=== PATIENT | female | born 1990 | race Two or more races ===

== ENCOUNTER 2016-08-20 09:03 | Emergency (ER) | payer MEDICAID ==
[~2016-08-20] VITALS: Ht 162.6 cm; Wt 78.9 kg
[2016-08-20 09:56] LABS: Urine Bilirubin Negative (Negative); Urine Color Yellow (Yellow); Urine Glucose Normal (Normal); Urine Ketone Negative (Negative); Urine Mucus FEW (None Seen); Urine Nitrite Negative (Negative); Urine RBC 292 /hpf (0 - 4); Urine Squamous Epithelial Cell FEW /hpf (<5); Urine Urobilinogen Normal (Negative)
[2016-08-20 10:02] LABS: Urine Blood 3+ /uL (Negative)
[2016-08-20 11:54] VITALS: BP 127/76
== END 2016-08-20 13:23 | disposition home or self-care (01) ==
LOC: ER 09:03
DX: O23.41 Unspecified infection of urinary tract in pregnancy, first trimester (principal); Z3A.10 10 weeks gestation of pregnancy
CPT/HCPCS: 36415; 76801; 81001; 84702

== ENCOUNTER 2017-01-23 21:59 | Observation (INO) | payer MEDICAID ==
[~2017-01-23] VITALS: Ht 162.6 cm; Wt 94.3 kg
[2017-01-23] MEDS ORDERED: TERBUTALINE SULFATE 1 MG/ML 1ML VIAL SC ONE (23:04)
[2017-01-24] MEDS ORDERED: TERBUTALINE SULFATE 1 MG/ML 1ML VIAL SC ONE ×3 (00:32)
[2017-01-24 01:04] LABS: Urine RBC None Seen /hpf (0 - 4)
[2017-01-24 01:21] LABS: Urine Bilirubin Negative (Negative); Urine Blood Negative /uL (Negative); Urine Color Yellow (Yellow); Urine Glucose Normal (Normal); Urine Ketone 2+ (Negative); Urine Nitrite Negative (Negative); Urine Squamous Epithelial Cell FEW /hpf (<5); Urine Urobilinogen Normal (Negative)
[2017-01-24] MEDS ORDERED: PREN27TA7 OR (05:03)
== END 2017-01-24 01:30 | disposition home or self-care (01) | DRG 566 ==
LOC: LDRP 21:59
PROVIDERS: ADMIT Specialist; ATTEND Specialist
DX: O26.893 Other specified pregnancy related conditions, third trimester (principal); R10.9 Unspecified abdominal pain; Z3A.31 31 weeks gestation of pregnancy
CPT/HCPCS: 59025; 81001; 81002; 96372; G0378; J3105

== ENCOUNTER 2017-02-09 18:42 | Observation (INO) | payer MEDICAID ==
[~2017-02-09 18:42] MED LIST: PREN27TA7 OR
[2017-02-09 20:44] LABS: Basophils # (auto) 0 uL; Basophils % (auto) 0.3 % (0.0-2.0); Eosinophils # (auto) 0.1 uL; Eosinophils % (auto) 0.9 % (0.0-7.0); Hematocrit 32.2 % (36.0-46.0); Hemoglobin 11.3 g/dL (12.2-16.2); Lymphocytes # (auto) 1.7 uL; Lymphocytes % (auto) 19.5 % (10.0-50.0); Mean Corpuscular Hemoglobin 31.5 pg (28.0-32.0); Mean Corpuscular Hgb Conc. 35.2 g/dL (32.0-36.0); Mean Corpuscular Volume 89.4 fL (80.0-100.0); Monocytes # (auto) 0.7 uL; Monocytes % (auto) 7.8 % (0.0-12.0); Neutrophils # (auto) 6.1 uL; Neutrophils % (auto) 71.5 % (37.0-80.0); Platelet Count (auto) 115 10^3/uL (140-450); White Blood Cell 8.5 10^3/uL (4.4-10.8)
[2017-02-09 20:59] LABS: Albumin 2.6 g/dL (3.4-5.0); BUN/Creatinine Ratio 11.4; Calcium 8.9 mg/dL (8.5-10.1); Potassium 3.2 mmol/L (3.5-5.1)
[2017-02-09 21:05] LABS: INR 0.91 (0.9-1.15); Partial Thromboplastin Time 24.1 sec (22.64-33.71); Prothrombin Time 9.9 sec (9.37-12.3)
[2017-02-09 21:08] LABS: Uric Acid 3.1 mg/dL (2.6-6.0)
[2017-02-09 21:28] LABS: Bilirubin, Total 0.2 mg/dL (0.2-1.0); Total Protein 6.8 g/dL (6.4-8.2)
== END 2017-02-09 20:15 | disposition home or self-care (01) | DRG 566 ==
LOC: LDRP 18:42
PROVIDERS: ADMIT Specialist; ATTEND Specialist
DX: O13.3 Gestational [pregnancy-induced] hypertension without significant proteinuria, third trimester (principal); Z3A.34 34 weeks gestation of pregnancy
CPT/HCPCS: 36415; 59025; 80053; 81002; 84550; 85025; 85362; 85379; 85610; 85730; G0378

== ENCOUNTER 2017-02-10 18:27 | Observation (INO) | payer MEDICAID | END 2017-02-10 20:07 | disposition home or self-care (01) | DRG 566 | LOC: LDRP 18:27 | PROVIDERS: ADMIT Specialist; ATTEND Specialist | DX: O13.3 Gestational [pregnancy-induced] hypertension without significant proteinuria, third trimester (principal); Z3A.34 34 weeks gestation of pregnancy | CPT/HCPCS: 59025; 81002; 84156; G0378 ==

== ENCOUNTER 2017-02-14 12:03 | Observation (INO) | payer MEDICAID ==
[~2017-02-14] VITALS: Ht 1 cm; Wt 0.5 kg
[2017-02-14] MEDS ORDERED: ACETAMINOPHEN 325 MG TAB PO ONE (12:15)
[2017-02-14 12:48] LABS: Basophils # (auto) 0 uL; Basophils % (auto) 0.3 % (0.0-2.0); Eosinophils # (auto) 0.1 uL; Eosinophils % (auto) 0.9 % (0.0-7.0); Hematocrit 33.1 % (36.0-46.0); Hemoglobin 11.4 g/dL (12.2-16.2); Lymphocytes # (auto) 1.3 uL; Lymphocytes % (auto) 16.3 % (10.0-50.0); Mean Corpuscular Hemoglobin 30.7 pg (28.0-32.0); Mean Corpuscular Hgb Conc. 34.5 g/dL (32.0-36.0); Mean Corpuscular Volume 88.9 fL (80.0-100.0); Monocytes # (auto) 0.4 uL; Monocytes % (auto) 4.8 % (0.0-12.0); Neutrophils # (auto) 6.1 uL; Neutrophils % (auto) 77.7 % (37.0-80.0); Platelet Count (auto) 106 10^3/uL (140-450); Red Blood Cells 3.72 10^6/uL (4.0-5.20); Red Cell Distribution Width 14.2 % (11.8-14.3); White Blood Cell 7.9 10^3/uL (4.4-10.8)
[2017-02-14 13:05] LABS: INR 0.92 (0.9-1.15)
[2017-02-14 13:39] LABS: Albumin 2.8 g/dL (3.4-5.0); BUN/Creatinine Ratio 9.5; Bilirubin, Total 0.3 mg/dL (0.2-1.0); Calcium 8.5 mg/dL (8.5-10.1); Total Protein 6.9 g/dL (6.4-8.2); Uric Acid 3.8 mg/dL (2.6-6.0)
[2017-02-14 13:58] LABS: Urine Bacteria NONE SEEN /hpf (None Seen); Urine Blood Negative /uL (Negative); Urine Specific Gravity 1.011 (1.001-1.035); Urine WBC 1 /hpf (0 - 5)
== END 2017-02-14 14:00 | disposition home or self-care (01) | DRG 566 ==
LOC: LDRP 12:03
PROVIDERS: ADMIT Specialist; ATTEND Specialist
DX: O13.3 Gestational [pregnancy-induced] hypertension without significant proteinuria, third trimester (principal); Z87.891 Personal history of nicotine dependence; Z3A.35 35 weeks gestation of pregnancy
CPT/HCPCS: 36415; 59025; 76818; 80053; 81001; 81002; 84550; 85025; 85610; 85730; G0378

== ENCOUNTER 2017-02-16 15:00 | Observation (INO) | payer MEDICAID | END 2017-02-16 16:15 | disposition home or self-care (01) | DRG 566 | LOC: LDRP 15:00 | PROVIDERS: ADMIT Obstetrics & Gynecology; ATTEND Obstetrics & Gynecology | DX: O13.3 Gestational [pregnancy-induced] hypertension without significant proteinuria, third trimester (principal); Z3A.35 35 weeks gestation of pregnancy | CPT/HCPCS: 59025; 76818; 81002; G0378 ==

== ENCOUNTER 2017-02-20 09:00 | Observation (INO) | payer MEDICAID ==
[2017-02-20 10:00] LABS: Basophils # (auto) 0 uL; Basophils % (auto) 0.4 % (0.0-2.0); Eosinophils # (auto) 0.1 uL; Eosinophils % (auto) 1.2 % (0.0-7.0); Hemoglobin 10.8 g/dL (12.2-16.2); Lymphocytes # (auto) 1.3 uL; Mean Corpuscular Hemoglobin 30.5 pg (28.0-32.0); Mean Corpuscular Hgb Conc. 33.9 g/dL (32.0-36.0); Monocytes # (auto) 0.4 uL; Monocytes % (auto) 5.2 % (0.0-12.0); Neutrophils # (auto) 5.8 uL; Neutrophils % (auto) 76.2 % (37.0-80.0); Nucleated Red Blood Cells % 0.1 %; Platelet Count (auto) 108 10^3/uL (140-450); Red Blood Cells 3.56 10^6/uL (4.0-5.20); Red Cell Distribution Width 14.1 % (11.8-14.3); White Blood Cell 7.7 10^3/uL (4.4-10.8)
[2017-02-20 10:09] LABS: INR 0.95 (0.9-1.15); Partial Thromboplastin Time 24.8 sec (22.64-33.71); Prothrombin Time 10.4 sec (9.37-12.3)
[2017-02-20 10:10] LABS: Urine Bacteria FEW /hpf (None Seen); Urine Blood Negative /uL (Negative); Urine Specific Gravity 1.015 (1.001-1.035); Urine WBC 7 /hpf (0 - 5)
[2017-02-20 10:24] LABS: Albumin 2.5 g/dL (3.4-5.0); BUN/Creatinine Ratio 14.3; Bilirubin, Total 0.3 mg/dL (0.2-1.0); Calcium 7.9 mg/dL (8.5-10.1); Potassium 3.1 mmol/L (3.5-5.1); Total Protein 6.3 g/dL (6.4-8.2)
[2017-02-20] MEDS ORDERED: POTASSIUM CHL 20 Meq TABLET PO ONE (10:48)
[2017-02-20 11:53] LABS: Protein, Urine 16.7 mg/dL (0.0-11.9)
[2017-02-20 12:29] LABS: 24 Hr. Total Protein, Urine 283.9 mg/24 Hr (<149.1)
== END 2017-02-20 13:25 | disposition home or self-care (01) | DRG 566 ==
LOC: LDRP 09:00
PROVIDERS: ADMIT Specialist; ATTEND Specialist
DX: O13.3 Gestational [pregnancy-induced] hypertension without significant proteinuria, third trimester (principal); O26.893 Other specified pregnancy related conditions, third trimester; E87.6 Hypokalemia; O62.9 Abnormality of forces of labor, unspecified; Z3A.35 35 weeks gestation of pregnancy
CPT/HCPCS: 36415; 59025; 76818; 80053; 81001; 81002; 84156; 84550; 85025; 85610; 85730; G0378

== ENCOUNTER 2017-02-23 10:52 | Observation (INO) | payer MEDICAID ==
[~2017-02-23] VITALS: Ht 162.6 cm; Wt 97.1 kg
[2017-02-23 13:08] LABS: Basophils # (auto) 0 uL; Basophils % (auto) 0.2 % (0.0-2.0); Eosinophils # (auto) 0.1 uL; Eosinophils % (auto) 1.1 % (0.0-7.0); Hematocrit 31.3 % (36.0-46.0); Hemoglobin 10.7 g/dL (12.2-16.2); Lymphocytes # (auto) 1.1 uL; Mean Corpuscular Hemoglobin 30.9 pg (28.0-32.0); Mean Corpuscular Hgb Conc. 34.2 g/dL (32.0-36.0); Mean Corpuscular Volume 90.3 fL (80.0-100.0); Monocytes # (auto) 0.4 uL; Monocytes % (auto) 6.5 % (0.0-12.0); Neutrophils # (auto) 5.1 uL; Neutrophils % (auto) 75.2 % (37.0-80.0); Platelet Count (auto) 114 10^3/uL (140-450); Red Blood Cells 3.46 10^6/uL (4.0-5.20); Red Cell Distribution Width 13.9 % (11.8-14.3); White Blood Cell 6.8 10^3/uL (4.4-10.8)
[2017-02-23 13:14] LABS: BUN/Creatinine Ratio 11.1; Potassium 3.1 mmol/L (3.5-5.1)
[2017-02-23 13:15] LABS: Albumin 2.6 g/dL (3.4-5.0); Bilirubin, Total 0.2 mg/dL (0.2-1.0); Calcium 8.1 mg/dL (8.5-10.1); Total Protein 6.6 g/dL (6.4-8.2); Uric Acid 3.5 mg/dL (2.6-6.0)
[2017-02-23 13:16] LABS: INR 0.91 (0.9-1.15); Partial Thromboplastin Time 24.8 sec (22.64-33.71); Prothrombin Time 9.9 sec (9.37-12.3)
[2017-02-23 13:20] LABS: Urine Bacteria NONE SEEN /hpf (None Seen); Urine Blood Negative /uL (Negative); Urine Mucus FEW (None Seen); Urine Specific Gravity 1.011 (1.001-1.035); Urine WBC 7 /hpf (0 - 5)
[2017-02-23] MEDS ORDERED: POTASSIUM CHL 20 Meq TABLET PO ONE (13:30)
[2017-02-23] MEDS ORDERED: POTASSIUM CHLORIDE 40 MEQ, LIDOCAINE 1% (LOCAL ANESTH.) 4 ML in SODIUM CHL 0.9% 100 ML IV ONE (13:30)
== END 2017-02-23 17:55 | disposition home or self-care (01) | DRG 566 ==
LOC: LDRP 10:52
PROVIDERS: ADMIT Specialist; ATTEND Specialist
DX: O13.3 Gestational [pregnancy-induced] hypertension without significant proteinuria, third trimester (principal); O26.93 Pregnancy related conditions, unspecified, third trimester; E87.6 Hypokalemia; Z3A.36 36 weeks gestation of pregnancy
CPT/HCPCS: 36415; 59025; 76818; 80053; 81001; 81002; 84550; 85025; 85362; 85379; 85610; 85730; 96365; 96366; G0378; J2001; J3480

== ENCOUNTER 2017-02-27 08:32 | Observation (INO) | payer MEDICAID ==
[~2017-02-27] VITALS: Ht 162.6 cm; Wt 97.1 kg
[2017-02-27 09:34] LABS: Albumin 2.7 g/dL (3.4-5.0); BUN/Creatinine Ratio 9.6; Calcium 8.7 mg/dL (8.5-10.1); Potassium 3.7 mmol/L (3.5-5.1)
[2017-02-27 09:37] LABS: Bilirubin, Total 0.2 mg/dL (0.2-1.0); Total Protein 6.9 g/dL (6.4-8.2)
[2017-02-27] MEDS ORDERED: LABETALOL HCL 200 MG TAB PO ONE (10:00)
[2017-02-27 10:25] LABS: Basophils # (auto) 0 uL; Basophils % (auto) 0.2 % (0.0-2.0); Eosinophils # (auto) 0.1 uL; Hematocrit 33.1 % (36.0-46.0); Hemoglobin 11.3 g/dL (12.2-16.2); Lymphocytes # (auto) 1.2 uL; Mean Corpuscular Hemoglobin 30.9 pg (28.0-32.0); Mean Corpuscular Hgb Conc. 34.2 g/dL (32.0-36.0); Mean Corpuscular Volume 90.4 fL (80.0-100.0); Monocytes # (auto) 0.5 uL; Monocytes % (auto) 6.1 % (0.0-12.0); Neutrophils # (auto) 6.6 uL; Neutrophils % (auto) 78.7 % (37.0-80.0); Platelet Count (auto) 104 10^3/uL (140-450); Red Blood Cells 3.66 10^6/uL (4.0-5.20); Red Cell Distribution Width 14.2 % (11.8-14.3); White Blood Cell 8.4 10^3/uL (4.4-10.8)
[2017-02-27 10:28] LABS: Urine Blood Negative /uL (Negative); Urine Specific Gravity 1.006 (1.001-1.035); Urine WBC 1 /hpf (0 - 5)
[2017-02-27 10:29] LABS: Urine Bacteria NONE SEEN /hpf (None Seen)
[2017-02-27 10:48] LABS: INR 0.92 (0.9-1.15); Partial Thromboplastin Time 24.5 sec (22.64-33.71)
== END 2017-02-27 11:40 | disposition home or self-care (01) | DRG 566 ==
LOC: LDRP 08:32
PROVIDERS: ADMIT Obstetrics & Gynecology; ATTEND Obstetrics & Gynecology
DX: O13.3 Gestational [pregnancy-induced] hypertension without significant proteinuria, third trimester (principal); O26.893 Other specified pregnancy related conditions, third trimester; R10.2 Pelvic and perineal pain; R51 Headache; Z3A.36 36 weeks gestation of pregnancy
CPT/HCPCS: 36415; 59025; 76818; 80053; 81001; 81002; 84550; 85025; 85610; 85730; G0378

== ENCOUNTER 2017-02-28 20:40 | Observation (INO) | payer MEDICAID ==
[2017-03-01] MEDS ORDERED: LABE200T18 PO (10:42)
== END 2017-02-28 21:46 | disposition home or self-care (01) | DRG 560 ==
LOC: LDRP 20:40
PROVIDERS: ADMIT Obstetrics & Gynecology; ATTEND Obstetrics & Gynecology
DX: O13.4 Gestational [pregnancy-induced] hypertension without significant proteinuria, complicating childbirth (principal); Z3A.37 37 weeks gestation of pregnancy
CPT/HCPCS: 59025; G0378

== ENCOUNTER 2017-03-01 10:05 | Observation (INO) | payer MEDICAID ==
[2017-03-01] MEDS ORDERED: LABE200T18 PO (10:42)
[2017-03-01 10:51] LABS: Protein, Urine 15.1 mg/dL (0.0-11.9)
[2017-03-01 10:56] LABS: 24 Hr. Total Protein, Urine 286.9 mg/24 Hr (<149.1)
[2017-03-01 11:05] LABS: Urine Bacteria FEW /hpf (None Seen); Urine Blood Negative /uL (Negative); Urine Specific Gravity 1.009 (1.001-1.035); Urine WBC 6 /hpf (0 - 5)
== END 2017-03-01 12:00 | disposition home or self-care (01) | DRG 955 ==
LOC: LDRP 10:05
PROVIDERS: ADMIT Specialist; ATTEND Specialist
DX: O13.9 Gestational [pregnancy-induced] hypertension without significant proteinuria, unspecified trimester (principal); Z3A.37 37 weeks gestation of pregnancy
CPT/HCPCS: 59025; 76818; 81001; 81002; 84156; G0378

== ENCOUNTER 2017-03-05 09:55 | Observation (INO) | payer MEDICAID ==
[~2017-03-05 09:55] MED LIST changes: +LABE200T18 PO
[2017-03-05 12:04] LABS: Basophils # (auto) 0 uL; Basophils % (auto) 0.3 % (0.0-2.0); Eosinophils # (auto) 0.1 uL; Lymphocytes # (auto) 1.1 uL; Lymphocytes % (auto) 15.1 % (10.0-50.0); Mean Corpuscular Hemoglobin 30.8 pg (28.0-32.0); Mean Corpuscular Hgb Conc. 34.2 g/dL (32.0-36.0); Mean Corpuscular Volume 89.9 fL (80.0-100.0); Monocytes # (auto) 0.5 uL; Monocytes % (auto) 6.4 % (0.0-12.0); Neutrophils # (auto) 5.8 uL; Neutrophils % (auto) 77.2 % (37.0-80.0); Platelet Count (auto) 105 10^3/uL (140-450); Red Blood Cells 3.56 10^6/uL (4.0-5.20); Red Cell Distribution Width 14.2 % (11.8-14.3); White Blood Cell 7.5 10^3/uL (4.4-10.8)
[2017-03-05 12:31] LABS: Albumin 2.6 g/dL (3.4-5.0); BUN/Creatinine Ratio 8.3; Bilirubin, Total 0.3 mg/dL (0.2-1.0); Calcium 8.4 mg/dL (8.5-10.1); Potassium 3.6 mmol/L (3.5-5.1); Total Protein 6.7 g/dL (6.4-8.2); Uric Acid 3.8 mg/dL (2.6-6.0)
[2017-03-05 12:32] LABS: INR 0.93 (0.9-1.15); Partial Thromboplastin Time 26.5 sec (22.64-33.71); Prothrombin Time 10.1 sec (9.37-12.3)
[2017-03-05 12:36] LABS: Urine Specific Gravity 1.006 (1.001-1.035)
[2017-03-05 12:37] LABS: Urine Blood Normal /uL (Negative)
[2017-03-05 12:40] LABS: Urine Bacteria FEW /hpf (None Seen); Urine WBC 0-2 /hpf (0 - 5)
== END 2017-03-05 12:05 | disposition home or self-care (01) | DRG 566 ==
LOC: LDRP 09:55
PROVIDERS: ADMIT Specialist; ATTEND Specialist
DX: O13.3 Gestational [pregnancy-induced] hypertension without significant proteinuria, third trimester (principal); E03.9 Hypothyroidism, unspecified; O99.283 Endocrine, nutritional and metabolic diseases complicating pregnancy, third trimester; Z3A.37 37 weeks gestation of pregnancy
CPT/HCPCS: 36415; 59025; 76818; 80053; 81001; 81002; 84550; 85025; 85610; 85730; G0378

== ENCOUNTER 2017-03-07 03:18 | Inpatient (IN) | payer MEDICAID ==
[~2017-03-07] VITALS: Ht 162.6 cm; Wt 99.3 kg
[2017-03-07] MEDS ORDERED: LACT. RINGERS/OXYTOCIN 20UNITS 1,000 ML IV SCH ×3 (04:35→21:13)
[2017-03-07 04:40] LABS: Basophils # (auto) 0 uL; Basophils % (auto) 0.2 % (0.0-2.0); Eosinophils # (auto) 0.1 uL; Eosinophils % (auto) 0.9 % (0.0-7.0); Hematocrit 32.9 % (36.0-46.0); Hemoglobin 11.1 g/dL (12.2-16.2); Lymphocytes # (auto) 1.5 uL; Mean Corpuscular Hemoglobin 30.7 pg (28.0-32.0); Mean Corpuscular Hgb Conc. 33.8 g/dL (32.0-36.0); Mean Corpuscular Volume 90.9 fL (80.0-100.0); Monocytes # (auto) 0.6 uL; Monocytes % (auto) 6.7 % (0.0-12.0); Neutrophils # (auto) 7.1 uL; Neutrophils % (auto) 76.2 % (37.0-80.0); Nucleated Red Blood Cells % 0.1 %; Platelet Count (auto) 111 10^3/uL (140-450); Red Blood Cells 3.63 10^6/uL (4.0-5.20); Red Cell Distribution Width 14.2 % (11.8-14.3); White Blood Cell 9.4 10^3/uL (4.4-10.8)
[2017-03-07] MEDS ORDERED: METHYLERGONOVINE MALEATE 0.2 MG/ML AMP IM PRN (04:45)
[2017-03-07] MEDS ORDERED: PENICILLIN G POT 5MIL/D5 50ML 50 ML IV ONE (04:45)
[2017-03-07] MEDS ORDERED: NALBUPHINE HCL 10 MG/1ml INJECTION IV PRN (04:45)
[2017-03-07] MEDS ORDERED: DERMOPLAST 60ML BOTTLE TOP PRN (04:45)
[2017-03-07] MEDS ORDERED: LIDOCAINE 2%HCL (LOCAL ANESTH.) INJ 20ML MDV IJ ONE (04:45)
[2017-03-07] MEDS ORDERED: WITCH HAZEL-GLYCERIN PAD TOP PRN (04:45)
[2017-03-07] MEDS ORDERED: PHISODERM TOP SOLN 240ML BTL TOP PRN (04:45)
[2017-03-07 04:54] LABS: INR 0.9 (0.9-1.15); Partial Thromboplastin Time 24.6 sec (22.64-33.71); Prothrombin Time 9.8 sec (9.37-12.3)
[2017-03-07 05:02] LABS: Alcohol, Urine < 3.0 mg/dL (0-5); Amphetamine Screen, Urine NEGATIVE (NEGATIVE); Barbiturate Scree,Urine NEGATIVE (NEGATIVE); Benzodiazephine Screen, Urine NEGATIVE (NEGATIVE); Cannabinoid Screen, Urine NEGATIVE (NEGATIVE); Cocaine Screen, Urine NEGATIVE (NEGATIVE); Opiate Scree,Urine NEGATIVE (NEGATIVE); Phencyclidine Screen, Urine NEGATIVE (NEGATIVE)
[2017-03-07 05:03] LABS: Urine Bacteria FEW /hpf (None Seen); Urine Blood Negative /uL (Negative); Urine WBC 1 /hpf (0 - 5)
[2017-03-07 05:06] LABS: Albumin 2.7 g/dL (3.4-5.0); BUN/Creatinine Ratio 11.8; Bilirubin, Total 0.3 mg/dL (0.2-1.0); Calcium 8.7 mg/dL (8.5-10.1); Potassium 3.6 mmol/L (3.5-5.1); Total Protein 6.8 g/dL (6.4-8.2); Uric Acid 3.5 mg/dL (2.6-6.0)
[2017-03-07] MEDS: LACTATED RINGER'S 1,000 ML IV SCH ×4 (05:30→12:23)
[2017-03-07] MEDS ORDERED: PENICILLIN G POTASSIUM 2,500,000 UNITS in D5W 5% 50 ML IV SCH (08:45)
[2017-03-07] MEDS: PENICILLIN G POTASSIUM 2,500,000 UNITS in D5W 5% 50 ML IV SCH ×4 (09:45→21:30)
[2017-03-07] MEDS ORDERED: LIDOCAINE HCL 2 %PF INJ 10ML AMP IJ ONE (10:30)
[2017-03-07] MEDS ORDERED: fentaNYL CITRATE 100 MCG/2 ML VL IV ONE (10:30)
[2017-03-07] MEDS ORDERED: fentaNYL W ROPIVACAINE 150 ML EPI SCH (10:30)
[2017-03-07] MEDS ORDERED: ePHEDrine SULFATE 50 MG/ML AMP IV ONE (10:30)
[2017-03-07] MEDS ORDERED: NALOXONE HCL 0.4 MG/ML VIAL IV ONE (10:30)
[2017-03-07] MEDS ORDERED: TERBUTALINE SULFATE 1 MG/ML 1ML VIAL SC ONE (12:30)
[2017-03-07] MEDS ORDERED: LABETALOL HCL 200 MG TAB PO ONE (16:45)
[2017-03-07] MEDS ORDERED: MAGNESIUM SULFATE 100 ML IV SCH (17:15)
[2017-03-07] MEDS: MAGNESIUM SULFATE 40MG/ML 1,000 ML IV SCH (18:09)
[2017-03-07] MEDS ORDERED: ACETAMINOPHEN 325 MG TAB PO PRN (20:15)
[2017-03-08] VITALS (21 sets, daily range): BP systolic 118–140; BP diastolic 57–86
[2017-03-08] MEDS: IBUPROFEN 600 MG TAB PO PRN ×3 (03:44→23:25)
[2017-03-08] MEDS: MAGNESIUM SULFATE 40MG/ML 1,000 ML IV SCH (12:31)
[2017-03-08] MEDS ORDERED: LACTATED RINGER'S 1,000 ML IV SCH (12:45)
[2017-03-08] MEDS ORDERED: SODIUM CHLORIDE 0.9% 1,000 ML IV SCH (12:45)
[2017-03-09 03:30] VITALS: BP 136/72
[2017-03-09 08:00] VITALS: BP 135/82
[2017-03-09] MEDS: IBUPROFEN 600 MG TAB PO PRN (09:53)
[2017-03-09] MEDS ORDERED: TETANUS-DIPTH-ACEL PERTUSSIS 0.5ML SYRG IM ONE (11:30)
[2017-03-09] MEDS ORDERED: INFLUENZA QUAD 2017-2018 0.5 ML SYRG IM ONE (11:30)
[2017-03-09] MEDS ORDERED: MEASLES, MUMPS & RUBELLA VAC(MMRII) 0.5ML SC ONE (11:30)
[2017-03-09 12:00] VITALS: BP 140/74
== END 2017-03-09 12:45 | disposition home or self-care (01) | DRG 560 ==
LOC: LDRP 03:18 → OBSVTOIN 03:18 → LDRP 03:26
PROVIDERS: ADMIT Obstetrics & Gynecology; ATTEND Obstetrics & Gynecology
PROC: 0KQM0ZZ Repair Perineum Muscle, Open Approach (ICD-10-PCS; principal; 2017-03-07)
PROC: 10E0XZZ Delivery of Products of Conception, External Approach (ICD-10-PCS; 2017-03-07)
PROC: 00HU33Z Insertion of Infusion Device into Spinal Canal, Percutaneous Approach (ICD-10-PCS; 2017-03-07)
PROC: 3E0R3BZ Introduction of Anesthetic Agent into Spinal Canal, Percutaneous Approach (ICD-10-PCS; 2017-03-07)
PROC: 10907ZC Drainage of Amniotic Fluid, Therapeutic from Products of Conception, Via Natural or Artificial Opening (ICD-10-PCS; 2017-03-07)
DX: O13.4 Gestational [pregnancy-induced] hypertension without significant proteinuria, complicating childbirth (principal); O99.824 Streptococcus B carrier state complicating childbirth; O77.0 Labor and delivery complicated by meconium in amniotic fluid; Z37.0 Single live birth; O69.81X0 Labor and delivery complicated by cord around neck, without compression, not applicable or unspecified; Z3A.38 38 weeks gestation of pregnancy; O70.1 Second degree perineal laceration during delivery; Z23 Encounter for immunization
CPT/HCPCS: 36415; 51702; 59025; 59409; 62282; 80053; 80307; 81001; 81002; 83735; 84550; 85025; 85610; 85730; 86850; 86900; 86901; 90471; 90715; 94760; 96365; 96366; 96372; 96375; G0378; J2540; J2590; J3010; J7060

== ENCOUNTER 2018-05-24 21:41 | Emergency (ER) | payer MEDICAID ==
[~2018-05-24] VITALS: Ht 162.6 cm; Wt 84.8 kg
[2018-05-24] MEDS ORDERED: methylPREDNISolone SOD SUCC 125 MG/2 ML VL IM ONE (22:15)
[2018-05-24] MEDS ORDERED: diphenhdrAMINE HCL 50 MG/1 ML VL IM ONE (22:15)
[2018-05-24 22:32] VITALS: BP 150/95
== END 2018-05-24 23:15 | disposition home or self-care (01) ==
LOC: ER 21:41
DX: T78.40XA Allergy, unspecified, initial encounter (principal); Z79.899 Other long term (current) drug therapy; X58.XXXA Exposure to other specified factors, initial encounter
CPT/HCPCS: 96372; 99283; J1200; J2930

== ENCOUNTER 2019-12-06 09:11 | Emergency (ER) | payer MEDICAID ==
[~2019-12-06] VITALS: Ht 162.6 cm; Wt 80.7 kg
[2019-12-06] MEDS ORDERED: FAMOTIDINE 20 MG TAB PO ONE (12:00)
[2019-12-06] MEDS ORDERED: SODIUM CHLORIDE 0.9% 1,000 ML IV ONE (12:00)
[2019-12-06] MEDS ORDERED: CHOLECALCIFEROL (VITD3) 2,000 UNIT CAP PO ONE (12:00)
[2019-12-06] MEDS ORDERED: SODIUM CHLORIDE 0.9% 500 ML IV ONE (12:00)
[2019-12-06] MEDS ORDERED: ASCORBIC ACID 500 MG TAB PO ONE (12:00)
[2019-12-06] MEDS ORDERED: AZITHROMYCIN 500MG/ 250ML 250 ML IV ONE (12:00)
[2019-12-06 13:25] LABS: Basophils # (auto) 0 10 ^3/uL (0-0.2); Basophils % (auto) 0.4 % (0.0-2.0); Eosinophils # (auto) 0 10 ^3/uL (0-0.8); Eosinophils % (auto) 0.3 % (0.0-7.0); Hematocrit 37.5 % (36.0-46.0); Hemoglobin 12.4 g/dL (12.2-16.2); Lymphocytes # (auto) 0.9 10 ^3/uL (0.4-5.4); Lymphocytes % (auto) 19.7 % (10.0-50.0); Mean Corpuscular Hemoglobin 29.3 pg (28.0-32.0); Mean Corpuscular Volume 88.6 fL (80.0-100.0); Monocytes # (auto) 0.5 10 ^3/uL (0-1.3); Monocytes % (auto) 10.3 % (0.0-12.0); Neutrophils # (auto) 3.2 10 ^3/uL (1.6-8.6); Neutrophils % (auto) 69.3 % (37.0-80.0); Platelet Count (auto) 132 10^3/uL (140-450); Red Blood Cells 4.23 10^6/uL (4.0-5.20); Red Cell Distribution Width 13.5 % (11.8-14.3); White Blood Cell 4.6 10^3/uL (4.4-10.8)
[2019-12-06 13:43] LABS: Albumin 3.6 g/dL (3.4-5.0); Calcium 8.2 mg/dL (8.5-10.1); Magnesium 2.2 mg/dL (1.6-2.6); Potassium 3.6 mmol/L (3.5-5.1)
[2019-12-06 13:46] LABS: Bilirubin, Total 0.2 mg/dL (0.2-1.0); Total Protein 7.5 g/dL (6.4-8.2)
[2019-12-06 16:00] VITALS: BP 110/63
== END 2019-12-06 17:28 | disposition home or self-care (01) ==
LOC: ER 09:11
DX: O98.511 Other viral diseases complicating pregnancy, first trimester (principal); O99.511 Diseases of the respiratory system complicating pregnancy, first trimester; U07.1 COVID-19; J98.8 Other specified respiratory disorders; Z3A.01 Less than 8 weeks gestation of pregnancy
CPT/HCPCS: 36415; 71045; 80053; 83735; 84702; 85025; 87070; 87426; 87804; 87880; 96361; 96365; 96366; 99284; J0456; J7030

== ENCOUNTER 2021-10-25 22:14 | Emergency (ER) | payer MEDICAID ==
[~2021-10-25] VITALS: Ht 162.6 cm; Wt 81.8 kg
[~2021-10-25 22:14] MED LIST changes: -LABE200T18 PO; +LABE200T7 PO
[2021-10-25 22:30] VITALS: BP 124/55
[2021-10-25 23:43] LABS: Basophils # (auto) 0 10 ^3/uL (0-0.2); Eosinophils # (auto) 0 10 ^3/uL (0-0.8); Hemoglobin 12.5 g/dL (12.2-16.2); Monocytes # (auto) 0.5 10 ^3/uL (0-1.3); Neutrophils # (auto) 7.1 10 ^3/uL (1.6-8.6); Red Cell Distribution Width 16.2 % (11.8-14.3); White Blood Cell 8.2 10^3/uL (4.4-10.8)
[2021-10-25 23:46] LABS: Albumin 4.2 g/dL (3.4-5.0); Calcium 9.2 mg/dL (8.5-10.1); Potassium 3.8 mmol/L (3.5-5.1)
[2021-10-25 23:50] LABS: BUN/Creatinine Ratio 9.5; Basophils % (auto) 0.2 % (0.0-2.0); Bilirubin, Total 0.4 mg/dL (0.2-1.0); Eosinophils % (auto) 0.3 % (0.0-7.0); Hematocrit 38.7 % (36.0-46.0); Lymphocytes # (auto) 0.5 10 ^3/uL (0.4-5.4); Lymphocytes % (auto) 6.7 % (10.0-50.0); Mean Corpuscular Hemoglobin 25.9 pg (28.0-32.0); Mean Corpuscular Hgb Conc. 32.3 g/dL (32.0-36.0); Mean Corpuscular Volume 80.1 fL (80.0-100.0); Monocytes % (auto) 5.9 % (0.0-12.0); Neutrophils % (auto) 86.9 % (37.0-80.0); Red Blood Cells 4.83 10^6/uL (4.0-5.20); Total Protein 8.3 g/dL (6.4-8.2)
[2021-10-25 23:53] LABS: Urine Bacteria NONE SEEN /hpf (None Seen); Urine Blood 3+ /uL (Negative); Urine Specific Gravity 1.003 (1.001-1.035); Urine WBC 18 /hpf (0 - 5)
[2021-10-26] MEDS ORDERED: cefTRIAXone SOD 1,000 MG VL IM ONE (07:30)
[2021-10-26] MEDS ORDERED: KETOROLAC TROMETH 60MG/2ML VIAL IM ONE (07:30)
[2021-10-26] MEDS ORDERED: BACDST PO (07:31)
[2021-10-26] MEDS ORDERED: IBUP800T27 PO (07:31)
== END 2021-10-26 07:47 | disposition home or self-care (01) ==
LOC: ER 22:15
DX: N39.0 Urinary tract infection, site not specified (principal); E03.9 Hypothyroidism, unspecified; Z32.02 Encounter for pregnancy test, result negative; Z79.1 Long term (current) use of non-steroidal anti-inflammatories (NSAID); Z79.899 Other long term (current) drug therapy
CPT/HCPCS: 36415; 76830; 76856; 80053; 81001; 84702; 85025; 96372; 99284; J0696; J1885

== ENCOUNTER 2023-10-03 22:12 | Emergency (ER) | payer MEDICAID ==
[~2023-10-03] VITALS: Ht 162.6 cm; Wt 85.9 kg
[~2023-10-03 22:12] MED LIST changes: +BACDST PO; +IBUP-1456 PO; +LABE200T33 PO; -LABE200T7 PO
[2023-10-03 22:28] VITALS: BP 144/91; PULSE 86; RESP 18; O2SAT 100
[2023-10-03] MEDS: methylPREDNISolone SOD SUCC 125 MG/2 ML VL IM ONE (22:47)
[2023-10-03] MEDS: diphenhdrAMINE HCL 50 MG/1 ML VL IM ONE (22:47)
== END 2023-10-04 02:19 | disposition left against medical advice (07) ==
LOC: ER 22:12
DX: T78.49XA Other allergy, initial encounter (principal); Z53.21 Procedure and treatment not carried out due to patient leaving prior to being seen by health care provider; X58.XXXA Exposure to other specified factors, initial encounter
CPT/HCPCS: 96372; J1200; J2919